=== PATIENT | male | born 2000 | race Caucasian/White ===

== ENCOUNTER 2021-12-07 19:45 | Emergency (ER) | payer OTHER ==
[~2021-12-07] VITALS: Ht 165.1 cm; Wt 61.2 kg
[2021-12-07 21:10] VITALS: BP 118/68
--- NOTE | 2021-12-07 22:10 | NUR ---
FAMILY AND [employer]SUMER EDUCATION TEACHER AT PT'S BEDSIDE
--- NOTE | 2021-12-07 22:58 | NUR ---
FINGER SPLINT APPLIED. Patient discharged to home in stable condition. Written and verbal after care instructions given. Patient verbalizes understanding of instruction.
== END 2021-12-07 23:22 | disposition home or self-care (01) ==
LOC: ER 19:53
DX: S63.612A Unspecified sprain of right middle finger, initial encounter (principal); X58.XXXA Exposure to other specified factors, initial encounter; Y93.89 Activity, other specified; Y92.89 Other specified places as the place of occurrence of the external cause; Y99.8 Other external cause status
CPT/HCPCS: 73140-TC